=== PATIENT | female | born 1985 | race American Indian/Alaskan Native ===

== ENCOUNTER 2017-08-21 11:42 | Emergency (ER) | payer BC, OTHER ==
[2017-08-21 11:42] VITALS: BMI 21.4
[2017-08-21 11:56] VITALS: RESP 18
[2017-08-21] MEDS ORDERED: Sodium Chloride 0.9% 1,000 ML IV STA (12:16)
[2017-08-21] MEDS ORDERED: Penicillin G Benzathine 1.2 Mill Unit/2 ml Syr IM STA (12:17)
--- NOTE | 2017-08-21 13:15 | ED PDOC ---
Arrival/HPI - General Chief Complaint: Fever Time Seen by Provider: 08/21/17 11:55 Historian: Patient - History of Present Illness Narrative History of Present Illness (Text): 08/21/17 13:11 31yo female with no PMHx present with complaint of fever, sore throat, generalized body ache, vomiting x 4days. States she can't keep anything down. + Odynophagia. States she took her left over Tamiflu yesterday without relieve. Notes history of Flu last year. denies cough, abdominal pain, diarrhea, constipation, hematemesis, hematochezia, sick contact, drooling, any other complaint. Past Medical History - Provider Review Nursing Documentation Reviewed: Yes - Infectious Disease Hx of Infectious Diseases: None - Reproductive Menopause: No - Past Medical History Past Medical History: No Previous - Neurological Hx Migraine: Yes - Psychiatric Hx Psychophysiologic Disorder: No Hx Depression: No Hx Emotional Abuse: No Hx Physical Abuse: No Hx Substance Use: No - Past Surgical History Past Surgical History: No Previous - Suicidal Assessment Feels Threatened In Home Enviroment: No Family/Social History - Physician Review Nursing Documentation Reviewed: Yes Family/Social History: Unknown Family HX Smoking Status: Former Smoker Hx Alcohol Use: Yes Hx Substance Use: No Allergies/Home Meds Allergies/Adverse Reactions: Allergies No Known Allergies Allergy (Verified 08/21/17 11:56) Home Medications: Home Meds Medication Instructions Recorded Confirmed Oseltamivir Phosphate [Tamiflu] 75 mg PO Q12 08/21/17 08/21/17 Review of Systems - Physician Review All systems were reviewed & negative as marked: Yes - Review of Systems Constitutional: Fevers Eyes: Normal ENT: Sore Throat Respiratory: Normal Cardiovascular: Normal Gastrointestinal: Nausea, Vomiting. absent: Abdominal Pain, Constipation, Diarrhea, Hematochezia, Hematemesis Genitourinary Female: Normal Musculoskeletal: Normal Skin: Normal Neurological: Normal Endocrine: Normal Hemo/Lymphatic: Normal Psychiatric: Normal Physical Exam Vital Signs Reviewed: Yes Vital Signs Temp Pulse Resp BP Pulse Ox 08/21/17 14:13 101 F H 79 18 118/76 97 08/21/17 11:53 102.4 F H 104 H 18 124/73 98 08/21/17 11:42 102.4 F H 104 H 18 124/73 98 Temperature: Febrile Blood Pressure: Normal Pulse: Tachycardic Respiratory Rate: Normal Appearance: Positive for: Well-Appearing, Non-Toxic, Comfortable Pain Distress: None Mental Status: Positive for: Alert and Oriented X 3 - Systems Exam Head: Present: Atraumatic, Normocephalic Pupils: Present: PERRL Extroacular Muscles: Present: EOMI Conjunctiva: Present: Normal Mouth: Present: Moist Mucous Membranes Pharnyx: Present: ERYTHEMA, EXUDATE, TONSILS ENLARGED. No: Peritonsilar Swelling, Uvular Deviation, Muffled/Hoarse Voice, Strider, Soft Palate/Uvular Edema Neck: Present: Normal Range of Motion Respiratory/Chest: Present: Clear to Auscultation, Good Air Exchange. No: Respiratory Distress, Accessory Muscle Use Cardiovascular: Present: Regular Rate and Rhythm, Normal S1, S2. No: Murmurs Abdomen: Present: Normal Bowel Sounds. No: Tenderness, Distention, Peritoneal Signs, Rebound, Guarding, McBurney's Point Tender, Rovsing's Sign Present Back: Present: Normal Inspection Upper Extremity: Present: Normal Inspection. No: Cyanosis, Edema Lower Extremity: Present: Normal Inspection. No: Edema Neurological: Present: GCS=15, CN II-XII Intact, Speech Normal Skin: Present: Warm, Dry, Normal Color. No: Rashes Lymphatic: Present: Other (left submandibular node tender and palpable) Psychiatric: Present: Alert, Oriented x 3, Normal Insight, Normal Concentration Medical Decision Making ED Course and Treatment: 08/21/17 13:42 31yo female present with fever, nausea, vomiting, sore throat x4days She had exudates with tonsilar swelling. No uvula shift. Tolerating her secretions. No neck pain. Febrile. Lab and Flu test was ordered. She was hydrated. Antipyretics, Decadron and PCN was ordered 08/21/17 20:19 Flu was negative Lab was noted without leukocytosis PT was treated for tonsillitis with antibiotics and decadron, antiemesis. Referred to her PMD. TRt ED for any new or worsening symptoms. - Lab Interpretations Lab Results: 08/21/17 13:27 08/21/17 13:27 Lab Results 08/21/17 13:27: Sodium 138, Potassium 3.7, Chloride 100, Carbon Dioxide 28, Anion Gap 14, BUN 10, Creatinine 0.6 L, Est GFR ( Amer) > 60, Est GFR ( Non-Af Amer) > 60, Random Glucose 101, Calcium 9.5, Total Bilirubin 0.9, AST 17 , ALT 33, Alkaline Phosphatase 82, Total Protein 7.9, Albumin 4.4, Globulin 3.5 , Albumin/Globulin Ratio 1.3 08/21/17 13:27: WBC 11.0, RBC 4.38, Hgb 12.9, Hct 37.2, MCV 84.9, MCH 29.5, MCHC 34.7, RDW 13.5, Plt Count 191, MPV 10.8, Gran % 80.5 H, Lymph % (Auto) 10.9 L, [place] % (Auto) 8.4 H, Eos % (Auto) 0.0 L, Baso % (Auto) 0.2, Gran # 8.89 H, Lymph # 1.2, [place] # 0.9 H, Eos # 0.0, Baso # 0.02 08/21/17 13:15: Influenza Typ A,B (EIA) Negative for flu a/b - Medication Orders Current Medication Orders: Discontinued Medications Acetaminophen (Tylenol 325mg Tab) 650 mg PO STAT STA Stop: 08/21/17 13:04 Last Admin: 08/21/17 13:19 Dose: 650 mg Dexamethasone (Decadron Inj) 10 mg IVP STAT STA Stop: 08/21/17 12:17 Last Admin: 08/21/17 13:13 Dose: 10 mg IVP Administration Document 08/21/17 13:13 SRE (Rec: 08/21/17 13:[address] [id number] Charges for Administration # of IVP Administrations 1 Sodium Chloride (Sodium Chloride 0.9%) 1,000 mls @ 999 mls/hr IV .Q1H1M STA Stop: 08/21/17 13:16 Last Admin: 08/21/17 13:15 Dose: 999 mls/hr eMAR Start Stop Document 08/21/17 13:15 SRE (Rec: 08/21/17 13:[address] [facility] [id number] Intravenous Solution Start Date 08/21/17 Start Time 12:30 End Date 08/21/17 End time 13:30 Total Infusion Time 60 Ondansetron HCl (Zofran Inj) 4 mg IVP STAT STA Stop: 08/21/17 12:17 Last Admin: 08/21/17 13:13 Dose: 4 mg IVP Administration Document 08/21/17 13:13 SRE (Rec: 08/21/17 13:13 [facility] [id number] Charges for Administration # of IVP Administrations 1 Penicillin G Benzathine (Bicillin L-A Inj) 1,200,000 units IM STAT STA PRN Reason: Protocol Stop: 08/21/17 12:18 Last Admin: 08/21/17 13:13 Dose: 1,200,000 units IM Administration Charges Document 08/21/17 13:13 SRE (Rec: 08/21/17 13:[address] [facility] [id number] Injection Site MAR Injection Site Right Gluteus Raffi Charges for Administration # of IM Administrations 1 Disposition/Present on Arrival - Present on Arrival Any Indicators Present on Arrival: No History of DVT/PE: No History of Uncontrolled Diabetes: No Urinary Catheter: No History of Decub. Ulcer: No History Surgical Site Infection Following: None - Disposition Have Diagnosis and Disposition been Completed?: Yes Diagnosis: Acute tonsillitis, Vomiting, Lymphadenopathy Disposition: HOME/ ROUTINE Disposition Time: 14:00 Patient Plan: Discharge Condition: STABLE Discharge Instructions (ExitCare): Tonsillitis (ED) Additional Instructions: Follow up with your doctor Return to Ed for any new or worsening symptoms Prescriptions: Amoxicillin 500 mg PO BID #14 tablet Referrals: PCP,NO [Primary Care Provider] - Follow up with primary Forms: [email or web address] ([place])
[2017-08-21 13:34] LABS: BASO # 0.02 K/mm3 (0.0-2.0); BASO % 0.2 % (0.0-3.0); GRAN # 8.89 (1.4-6.5); GRAN % 80.5 % (50.0-68.0); HEMATOCRIT 37.2 % (36.0-48.0); LYMPH # 1.2 (1.2-3.4); LYMPH % 10.9 % (22.0-35.0); MEAN CELL VOLUME 84.9 fl (80.0-105.0); MEAN CORPUSCULAR HEMOGLOBIN 29.5 pg (25.0-35.0); MEAN CORPUSCULAR HGB CONC 34.7 g/dl (31.0-37.0); MEAN PLATELET VOLUME 10.8 fl (7.0-11.0); MONO # 0.9 (0.1-0.6); MONO % 8.4 % (1.0-6.0); RED CELL DISTRIBUTION WIDTH 13.5 % (11.5-14.5)
[2017-08-21 13:40] LABS: ALB/GLOB RATIO 1.3 (1.1-1.8); ALKALINE PHOSPHATASE 82 U/L (38-126); ALT/SGPT 33 U/L (7-56); AST/SGOT 17 U/L (14-36); BILIRUBIN,TOTAL 0.9 mg/dL (0.2-1.3); BLOOD UREA NITROGEN 10 mg/dL (7-21); CALCIUM 9.5 mg/dL (8.4-10.5); CARBON DIOXIDE 28 mmol/L (21-33); CHLORIDE 100 mmol/L (98-107); GFR AFRICAN-AMERICAN > 60; GLUCOSE,RANDOM 101 mg/dL (70-110); POTASSIUM 3.7 mmol/L (3.6-5.0); SODIUM 138 mmol/L (132-148); TOTAL PROTEIN 7.9 g/dL (5.8-8.3)
[2017-08-21 14:14] VITALS: BP 118/76; PULSE 79; TEMP 101; O2SAT 97
== END 2017-08-21 14:15 | disposition home or self-care (01) ==
LOC: ED 11:42
DX: J03.90 Acute tonsillitis, unspecified (principal); R11.10 Vomiting, unspecified; R59.1 Generalized enlarged lymph nodes; Z87.891 Personal history of nicotine dependence
CPT/HCPCS: 80053; 85025; 87804; 96361; 96372; 96374; 96375; 99284; J0561; J1100; J2405; J7040